=== PATIENT | female | born 1990 | race Caucasian/White ===

== ENCOUNTER → 2019-08-11 17:56 | Emergency (ER) | payer OTHER, SELFPAY | END | disposition left against medical advice (07) | PROVIDERS: Emergency Provider Nurse Practitioner | DX: Z53.21 Procedure and treatment not carried out due to patient leaving prior to being seen by health care provider (principal) | CPT/HCPCS: 99199 ==

== ENCOUNTER 2020-08-12 08:49 | Emergency (ER) | payer MEDICAID, SELFPAY ==
[2020-08-12 09:35] VITALS: BP 105/60; PULSE 76; RESP 18; TEMP 36.6; O2SAT 97
--- NOTE | 2020-08-12 09:55 | ED.URI ---
HPI - URI/Sore Throat General Chief Complaint: Upper Respiratory Infection Stated Complaint: sore throat Time Seen by Provider: 08/12/20 09:55 Source: patient Mode of arrival: ambulatory Limitations: no limitations History of Present Illness HPI Narrative: Janessa Eason is a 29 female with no prior history who comes to [facility] complaining of body aches and sore throat with swollen lymph nodes bilaterally. Started yesterday, pain is 6 out of 10. 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 EYES: Denies visual changes, redness, discharge. ENT: Denies rhinorrhea, congestion, has sore throat, otalgia. Has muscle aches and generally does not feel well CARDIOVASCULAR: Denies chest pain, palpitations, edema. RESPIRATORY: Denies dyspnea, wheezing, cough GASTROINTESTINAL: Denies abdominal pain, nausea, vomiting, diarrhea. GENITOURINARY: Denies dysuria, hematuria, abnormal discharge SKIN: Denies rash or itching. NEUROLOGIC: Denies numbness, or focal weakness. PSYCHIATRIC: Denies anxiety or depression. PENDING S[facility] TO [facility] Past Medical History Medical History No acute medical problems Family History Family History Other Depression Social History Social History (Updated 08/12/20 @ 10:04 by Cyndy Masters CNP) Smoking packs per day: 0.25 Smoking cigarettes per day: 5.0 Smoking status: Current some day smoker Tobacco type: cigarettes Alcohol intake: current Exam Narrative: Exam Narrative: GENERAL: This is a well-nourished, well-developed patient, in moderate distress. HEAD: normocephalic, atraumatic. EYES: Sclera clear/white. Vision is grossly intact. EARS: External ears normal, auditory canals clear and without drainage, TMs normal without perforation. Hearing grossly intact. NOSE: External nose normal without nasal discharge, nares without redness, no rhinorrhea. THROAT: Mucous membranes moist, posterior pharynx erythematous with 2+ tonsillar edema NECK: Neck supple, bilateral enlarged tender submandibular lymph nodes CARDIOVASCULAR: Regular rate and rhythm without murmurs, gallops, or rubs. RESPIRATORY: Clear to auscultation. Breath sounds equal bilaterally. No wheezes, rales, or rhonchi. GASTROINTESTINAL: Abdomen soft, non-tender, SKIN: warm, intact with no suspicious lesions or rash, good texture and turgor. NEURO: awake, alert, and oriented to person, place and time. There were no obvious focal neurologic abnormalities. Steady gait EXTREMITIES: Normal range of motion. BACK: Nontender without deformity Course Course Emergency Course: Patient who works in a long-term and is tested twice a week for Covid, comes to [facility] with sore throat and muscle aches, worsening last day Strep test positive Flu test negative Started on penicillin, prednisone- hration and infection control discussed Vital Signs Vital signs: Vital Signs Temperature 97.8 F 08/12/20 09:35 Pulse Rate 76 08/12/20 09:35 Respiratory Rate 18 08/12/20 09:35 Blood Pressure 105/60 08/12/20 09:35 Pulse Oximetry 97 08/12/20 09:35 Temperature 97.8 F 08/12/20 09:35 Pulse Rate 76 08/12/20 09:35 Respiratory Rate 18 08/12/20 09:35 Blood Pressure 105/60 08/12/20 09:35 Pulse Oximetry 97 08/12/20 09:35 MDM - URI/Sore Throat Differential Diagnosis Differential diagnosis: Likely upper respiratory infection, sinusitis, pharyngitis and other Lab Data Labs: Influenza A Screen Negative Reference Range: Negative Influenza B Screen Negat
== END 2020-08-12 10:14 | disposition home or self-care (01) ==
PROVIDERS: Emergency Provider Nurse Practitioner
DX: J02.0 Streptococcal pharyngitis (principal); F17.210 Nicotine dependence, cigarettes, uncomplicated
CPT/HCPCS: 87804; 87880; 99213; G0463

== ENCOUNTER 2020-09-24 14:46 | Emergency (ER) | payer MEDICAID, SELFPAY ==
[2020-09-24 15:00] VITALS: BP 119/61; PULSE 119; RESP 18; TEMP 36.7; O2SAT 98
--- NOTE | 2020-09-24 15:01 | ED.GENADULT ---
HPI - General Adult General Chief complaint: Upper Respiratory Infection Stated complaint: sore throat body ache weak Time Seen by Provider: 09/24/20 15:01 Source: patient Mode of arrival: ambulatory Limitations: no limitations History of Present Illness HPI narrative: 29-year-old female patient presents to the [facility] with complaints of cold symptoms for the past 3 days. Patient states she has had sore throat that got increasingly worse last night. Patient states that he has also had some nasal drainage and congestion. Denies any fevers that she is aware of. Patient states she was diagnosed with strep earlier in August and was treated with amoxicillin. Patient states she thought that the strep went away. Patient states she does get tested weekly for Covid, every Sunday. Patient states she did not get tested this week due to the fact that she was not feeling well but she does work in a long-term care facility. Patient states she has been taking [id number] DayQuil, NyQuil and sinus medications for her symptoms. Related Data Allergies Allergy/AdvReac Type Severity Reaction Status Date / Time No Known Allergies Allergy Verified 09/24/20 14:48 Review of Systems Review of Systems: Narrative: CONSTITUTIONAL: Denies fever, chills, or sweats. EYES: Denies visual changes, redness, or discharge. ENT: Positive rhinorrhea, congestion, positive sore throat, denies otalgia. CARDIOVASCULAR: Denies chest pain, palpitations, or edema. RESPIRATORY: Denies cough or dyspnea. GASTROINTESTINAL: Denies abdominal pain, nausea, vomiting, or diarrhea. GENITOURINARY: Denies dysuria or hematuria. SKIN: Denies rash or itching. MUSCULOSKELETAL: Denies back pain, joint pain, or myalgia. NEUROLOGIC: Denies headache, numbness, or weakness. PSYCHIATRIC: Denies anxiety or depression. [facility] Past Medical History Medical History No acute medical problems Family History Family History Other Depression Social History Social History Smoking packs per day: 0.25 Smoking cigarettes per day: 5.0 Smoking status: Current some day smoker Tobacco type: cigarettes Alcohol intake: current Comments At the time of my signature I agree with nursing past medical history, surgical, social, and family history. There is no relevant family history pertinent to the presenting complaint. Exam Narrative: Exam Narrative: GENERAL: Well-appearing, well-nourished, and in no acute distress. HEAD: Normocephalic, atraumatic. EYES: PERRLA and EOMI. ENT: Nares clear, no rhinorrhea or epistaxis. Mucous membranes moist. Posterior pharynx with some erythema and 2+ tonsil enlargement noted. No exudates or lesions present. Bilateral TMs are clear with no erythema or foreign bodies in the canal. NECK: Supple. No lymphadenopathy CHEST: Clear to auscultation. No respiratory distress. HEART: Regular rate and rhythm. No murmur heard. Normal peripheral pulses. ABDOMEN: Soft, nontender, nondistended, normal active bowel sounds. EXTREMITIES: Normal range of motion. No edema. SKIN: Warm, dry, no rash. NEURO: No focal deficits. Alert and oriented x3. Course Vital Signs Vital signs: Vital Signs Temperature 36.7 C 09/24/20 15:00 Pulse Rate 119 H 09/24/20 15:00 Respiratory Rate 18 09/24/20 15:00 Blood Pressure 119/61 09/24/20 15:00 Pulse Oximetry 98 09/24/20 15:00 Temperature 36.7 C 09/24/20 15:00 Pulse Rate 119 H 09/24/20 15:00 Respiratory Rate 18 09/24/20 15:00 Blood Pressure 119/61 09/24/20 15:00 Pulse Oximetry 98 09/24/20 15:00 Vital signs reviewed Medical Decision Making Differential Diagnosis Differential Diagnosis: Differential diagnosis: Allergic rhinitis, chronic sinusitis, tonsillitis, acute sinusitis, infectious mononucleosis, seasonal influenza, pertussis,
[2020-09-25 00:24] LABS: SARS-CoV-2 RNA PCR Negative
== END 2020-09-24 15:35 | disposition home or self-care (01) ==
PROVIDERS: Emergency Provider Nurse Practitioner Family
DX: J02.0 Streptococcal pharyngitis (principal); Z20.822 Contact with and (suspected) exposure to COVID-19; F17.210 Nicotine dependence, cigarettes, uncomplicated
CPT/HCPCS: 87804; 87880; 99213; C9803; G0463; U0003; U0005

== ENCOUNTER 2020-11-25 16:14 | Emergency (ER) | payer SELFPAY ==
[2020-11-25 16:23] VITALS: BP 126/81; PULSE 86; RESP 16; TEMP 36.1; O2SAT 98
[2020-11-25 16:29] VITALS: BP 126/81; PULSE 86; RESP 16; TEMP 36.1; O2SAT 98
--- NOTE | 2020-11-25 16:39 | ED.URI ---
HPI - URI/Sore Throat General Chief Complaint: Upper Respiratory Infection Stated Complaint: runny nose clammy and fatigue Time Seen by Provider: 11/25/20 16:39 Source: patient and RN notes reviewed Mode of arrival: ambulatory Limitations: no limitations History of Present Illness HPI Narrative: 30 year old [facility] complaints of 3 day history of episodes of vomiting and diarrhea and some intermittent abdominal discomfort. She states Sunday she got sick at work and vomited at work and had some abdominal pain, reports that she has had to call off work for the past 2 days. She states that she has no vomiting or diarrhea today but continues to have decrease in appetite and some abdominal cramping.She reports drinking some Gatorade today and having some chicken noodle soup and ramen noodles.She states that she and daughter had strep 2 months ago and daughter is also feeling ill with similar symptoms wants to make sure she does not have strep, denies sore throat, fevers, admits to some nasal drainage. Patient works at [employer] and is COVID tested weekly. MD elicited complaint: rhinorrhea and other (vomiting and diarrhea and intermittent abdominal discomfort) Onset (ago): day(s) (3) Description of mucous: clear Able to tolerate fluids by mouth: Yes Associated symptoms: rhinorrhea, abdominal pain, vomiting and diarrhea Treatments prior to arrival: acetaminophen and cold medicine (Dayquil and Nyquil) Related Data Allergies Allergy/AdvReac Type Severity Reaction Status Date / Time No Known Allergies Allergy Verified 11/25/20 16:28 Review of Systems Review of Systems: Narrative: CONSTITUTIONAL: Denies fever, chills, or sweats. EYES: Denies visual changes, redness, or discharge. ENT: positive rhinorrhea,no congestion, sore throat, or otalgia. CARDIOVASCULAR: Denies chest pain, palpitations, or edema. RESPIRATORY: Denies cough or dyspnea. GASTROINTESTINAL:intermittent mid abdominal pain, episodes of nausea, vomiting, or diarrhea. GENITOURINARY: Denies dysuria or hematuria. SKIN: Denies rash or itching. MUSCULOSKELETAL: Denies back pain, joint pain, or myalgia. NEUROLOGIC: Denies headache, numbness, or weakness. PSYCHIATRIC: positive history of anxiety or depression. All systems reviewed & are unremarkable except as noted in HPI and below [facility] Past Medical History Medical History (Updated 11/27/20 @ 15:29 by Flores Knowles NP) Anxiety and depression No acute medical problems Surgical History Surgical History (Updated 11/27/20 @ 15:29 by Flores Knowles NP) History of tubal ligation Family History Family History Other Depression Social History Social History (Updated 11/27/20 @ 15:30 by Flores Knowles NP) Smoking packs per day: 0.25 Smoking cigarettes per day: 5.0 Years smoked: 18 Smoking pack-years: 4.50 Smoking status: Current every day smoker Tobacco type: cigarettes Alcohol intake: current Substance use: never Living arrangements: with family Gender identity (if verbalized by the patient): Female Comments At time of signature, agree with nursing past medical, surgical, social and family history. There is no relevant family history pertinent to the presenting complaint Exam Narrative: Exam Narrative: GENERAL: Well-appearing, well-nourished, and in no acute distress. HEAD: Normocephalic, atraumatic. EYES: PERRLA and EOMI. ENT: Nares clear, clear rhinorrhea or epistaxis. Mucous membranes moist.TM's normal with good light reflex, throat pink with no lesions or exudates, no tonsil enlargement NECK: Supple.no lymphadenopathy CHEST: Clear to auscultation. No respiratory distress.SAO2 98% on room air HEART: Regular rate and rhythm. No murmur heard. Normal peripheral pulses. ABDOMEN: Soft, nontender to palpation, nondistended, normal active bowel sounds. EXTREMITIES: Normal range of motion. N
== END 2020-11-25 17:10 | disposition home or self-care (01) ==
PROVIDERS: Emergency Provider Registered Nurse
DX: K52.9 Noninfective gastroenteritis and colitis, unspecified (principal); F17.210 Nicotine dependence, cigarettes, uncomplicated
CPT/HCPCS: 87081; 87880; 99213; G0463

== ENCOUNTER 2021-09-25 15:26 | Emergency (ER) | payer SELFPAY ==
[2021-09-25 15:45] VITALS: BP 127/87; PULSE 93; RESP 18; TEMP 37.1; O2SAT 99
--- NOTE | 2021-09-25 16:12 | ED.GENADULT ---
HPI - General Adult General Chief complaint: Upper Respiratory Infection Stated complaint: nose throat diahhrea nausea Source: patient Mode of arrival: ambulatory Limitations: no limitations History of Present Illness HPI narrative: Patient presents for evaluation of multiple complaints. She states that 2 days ago she developed some fatigue. Yesterday she developed diarrhea and did not get up out of bed for the day. She experienced nausea without vomiting. Her appetite has been decreased. She denies any abdominal pain. She states she has had hot flashes and chills but does not have a thermometer to check her temperature. She also reports a sore throat. 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 She gets tested for Covid every Sunday and Sunday. She has been taking Tylenol, DayQuil, NyQuil, Benadryl with improvement in her symptoms thereafter. Her daughter recently had similar symptoms. She smokes 1/4 pack/day. She missed work both yesterday and today and is requesting a note to keep her off of work Related Data Allergies Allergy/AdvReac Type Severity Reaction Status Date / Time No Known Allergies Allergy Verified 09/25/21 15:55 Review of Systems Review of Systems: CONSTITUTIONAL: Reports hot flashes and chills. Reports fatigue. Reports decreased appetite. EYES: Denies visual changes, redness, or discharge. ENT: Reports sore throat. Denies rhinorrhea, congestion, or otalgia. CARDIOVASCULAR: Denies chest pain, palpitations, or edema. RESPIRATORY: Denies cough or dyspnea. GASTROINTESTINAL: Reports diarrhea, and nausea without vomiting GENITOURINARY: Denies dysuria or hematuria. SKIN: Denies rash or itching. MUSCULOSKELETAL: Denies back pain, joint pain, or myalgia. NEUROLOGIC: Denies headache, numbness, dizziness, or weakness. PSYCHIATRIC: Denies anxiety or depression. [facility] Past Medical History Medical History Anxiety and depression No acute medical problems Surgical History Surgical History History of tubal ligation Family History Family History Other Depression Social History Social History Smoking packs per day: 0.25 Smoking cigarettes per day: 5.0 Years smoked: 18 Smoking pack-years: 4.50 Smoking status: Current every day smoker Tobacco type: cigarettes Alcohol intake: current Substance use: never Gender identity (if verbalized by the patient): Female Exam Narrative: GENERAL: Well-appearing, well-nourished, and in no acute distress. HEAD: Normocephalic, atraumatic. EYES: PERRLA and EOMI. ENT: Nares clear, no rhinorrhea or epistaxis. Mucous membranes moist. Oropharynx without tonsillar hypertrophy exudate or other lesions. Mild posterior pharyngeal erythema. Bilateral TMs pearly carroll nonbulging NECK: Supple. No adenopathy or masses. No carotid bruits or JVD CHEST: Clear to auscultation. No respiratory distress. No wheezes rales or rhonchi HEART: Regular rate and rhythm. No murmur heard. Normal peripheral pulses. ABDOMEN: Soft, nontender, nondistended, normal active bowel sounds. EXTREMITIES: Normal range of motion. No edema. SKIN: Warm, dry, no rash. NEURO: No focal deficits. Alert and oriented x3. PSYCH: Normal mood and affect. Course Course Emergency Course: This is a 30-year-old female who presented with sick symptoms. Influenza, strep, Covid were all negative. Likely acute viral syndrome. Advised increased hydration and [id number] agents for symptom management. She should follow-up outpatient for further evaluation treatment return for worsening symptoms. Patient agreed with plan of care. Level of Care: Express Care Visit Vital Signs Vital signs: Vital Signs Temperature 37.1 C 09/25/21 15
== END 2021-09-25 16:20 | disposition home or self-care (01) ==
PROVIDERS: Emergency Provider Nurse Practitioner
DX: B34.9 Viral infection, unspecified (principal); Z20.822 Contact with and (suspected) exposure to COVID-19; F17.210 Nicotine dependence, cigarettes, uncomplicated
CPT/HCPCS: 87081; 87426; 87804; 87880; 99213; C9803; G0463

== ENCOUNTER 2022-06-21 11:58 | Emergency (ER) | payer SELFPAY ==
[2022-06-21 12:06] VITALS: BP 123/67; PULSE 100; RESP 16; TEMP 36.9; O2SAT 98
--- NOTE | 2022-06-21 13:49 | ED.FEMALEGU ---
HPI - Female Genitourinary General Chief complaint: Urogenital-Female Stated complaint: Vaginal Issue Time Seen by Provider: 06/21/22 13:49 Source: patient and RN notes reviewed Mode of arrival: ambulatory Limitations: no limitations History of Present Illness HPI Narrative: 31-year-old female presented for complaint of vaginal itching and discharge over the last few days. She endorses lower abdominal pain that radiates to the lower back. She also reports burning with urination, states it feels like she is being stabbed at the end of the urine stream. She states she has hematuria for about 2 days. She denies nausea vomiting, diarrhea, fever or chills. She endorses new sexual partner and also concern for STDs without known exposure. Related Data Allergies Allergy/AdvReac Type Severity Reaction Status Date / Time No Known Allergies Allergy Verified 06/21/22 13:27 Review of Systems Review of Systems: CONSTITUTIONAL: Denies body aches, fever, chills, or sweats. CARDIOVASCULAR: Denies chest pain, palpitations, or edema. RESPIRATORY: Denies cough or dyspnea. GASTROINTESTINAL: Denies abdominal pain, nausea, vomiting, or diarrhea. GENITOURINARY: per HPI SKIN: Denies rash, itching, or wounds. MUSCULOSKELETAL: Denies back pain or myalgia. [facility] Past Medical History Medical History Anxiety and depression No acute medical problems Surgical History Surgical History History of tubal ligation Family History Family History Other Depression Social History Social History Smoking packs per day: 0.25 Smoking cigarettes per day: 5.0 Years smoked: 18 Smoking pack-years: 4.50 Smoking status: Current every day smoker Tobacco type: cigarettes Alcohol intake: current Substance use: never Gender identity (if verbalized by the patient): Female Comments At time of signature, I have reviewed and agree with nursing past medical, surgical, social and family history unless otherwise noted. Please see nursing chart for further information. There is no relevant family history pertinent to the presenting complaint Exam Narrative: GENERAL: Well-appearing ENT: Mucous membranes pink and moist. NECK: Normal AROM. Supple. CHEST: No respiratory distress. Clear to auscultation. HEART: Regular rate and rhythm. ABDOMEN: Soft, nontender, nondistended, normal active bowel sounds. No CVA tenderness SKIN: Warm, dry, no rash. NEURO: No focal deficits. Alert and oriented x3. Gait steady. PSYCH: Normal affect. Course Course Emergency Course: Patient is aware of diagnosis, understands and agrees to treatment plan. Anticipatory guidance given. Patient agrees to follow-up as directed and is aware of reasons to seek care at the emergency department. Portions of this record may have been created with voice recognition software Level of Care: Express Care Visit Vital Signs Vital signs: Vital Signs Temperature 98.4 F 06/21/22 12:06 Pulse Rate 100 06/21/22 12:06 Respiratory Rate 16 06/21/22 12:06 Blood Pressure 123/67 06/21/22 12:06 Pulse Oximetry 98 06/21/22 12:06 Oxygen Delivery Room Air 06/21/22 12:06 Temperature 98.4 F 06/21/22 12:06 Pulse Rate 100 06/21/22 12:06 Respiratory Rate 16 06/21/22 12:06 Blood Pressure 123/67 06/21/22 12:06 Pulse Oximetry 98 06/21/22 12:06 Oxygen Delivery Room Air 06/21/22 12:06 Reviewed MDM - Female Genitourinary MDM Narrative Medical decision making narrative: Patient presenting with concern for UTI and STD. Urine specimen collected for GC, chlamydia, trich. Informed Pt will be contacted w/ results when they become available if they are positive. Discussed with patient that it takes up to 7 days for result
== END 2022-06-21 14:10 | disposition home or self-care (01) ==
PROVIDERS: Emergency Provider Nurse Practitioner Family
DX: N39.0 Urinary tract infection, site not specified (principal); Z20.2 Contact with and (suspected) exposure to infections with a predominantly sexual mode of transmission; F17.210 Nicotine dependence, cigarettes, uncomplicated
CPT/HCPCS: 81003; 87077; 87086; 87186; 87491; 87591; 87661; 99214; G0463

== ENCOUNTER 2022-10-22 18:17 | Emergency (ER) | payer SELFPAY ==
--- NOTE | ~2022-10-22 | XR_ITS ---
EXAMINATION: [id number] DATE: 10/22/2022 18:43 INDICATION: Lateral left rib pain post fall TECHNIQUE: A frontal inspiratory view of the chest and 3 views of the left ribs were obtained. COMPARISON: None FINDINGS: There is a nodular opacity projecting over the posterolateral left ninth rib on one AP images with no evident correlate on the third AP image or the oblique image suggesting this represents artifact res ulting from combination of rib, pulmonary vasculature, breast tissue and nipple shadows. No other air space opacities, pulmonary edema, pleural effusion or pneumothorax. Cardiomediastinal silhouette is n ormal. No rib fractures identified. IMPRESSION: 1. No rib fracture or acute cardiopulmonary disease. Reviewed, dictated and finalized at location A.
[2022-10-22 18:34] VITALS: BP 121/68; PULSE 86; RESP 18; TEMP 36.7; O2SAT 100
--- NOTE | 2022-10-22 18:58 | ED.GENADULT ---
HPI - General Adult General Chief complaint: Fall Stated complaint: Fall Injury/Rib Pain Source: patient Mode of arrival: ambulatory Limitations: no limitations History of Present Illness HPI narrative: Patient presents for evaluation of pain in left ribs. Symptom onset last night. She indicates she slipped on wet porch and landed on her left ribs. She did not hit her head. No loss of consciousness. No other injury. She reports 6/10 pain in the affected area, worse with deep inspiration. She denies any shortness of breath. She does smoke approximately 5 cigarettes per day. No additional complaints or concerns. Related Data Home Medications Medication Instructions Recorded Confirmed No Home Medications 10/22/22 10/22/22 Allergies Allergy/AdvReac Type Severity Reaction Status Date / Time No Known Allergies Allergy Verified 10/22/22 19:24 Review of Systems Review of Systems: CONSTITUTIONAL: Denies fever, chills, or sweats. EYES: Denies visual changes, redness, or discharge. ENT: Denies rhinorrhea, congestion, sore throat, or otalgia. CARDIOVASCULAR: Denies chest pain per se, palpitations, or edema. RESPIRATORY: Denies cough or dyspnea. GASTROINTESTINAL: Denies abdominal pain, nausea, vomiting, or diarrhea. GENITOURINARY: Denies dysuria or hematuria. SKIN: Denies rash or itching. MUSCULOSKELETAL: Reports pain in left ribs. Denies back pain, joint pain, or myalgia. NEUROLOGIC: Denies headache, numbness, dizziness, or weakness. PSYCHIATRIC: Denies anxiety or depression. [facility] Past Medical History Medical History Anxiety and depression No acute medical problems Surgical History Surgical History History of tubal ligation Family History Family History Other Depression Social History Social History Smoking packs per day: 0.25 Smoking cigarettes per day: 5.0 Years smoked: 18 Smoking pack-years: 4.50 Smoking status: Current every day smoker Tobacco type: cigarettes Alcohol intake: current Substance use: never Living arrangements: with family Gender identity (if verbalized by the patient): Female Spiritual care concerns: No Exam Narrative: GENERAL: Well-appearing, well-nourished, and in no acute distress. HEAD: Normocephalic, atraumatic. EYES: PERRLA and EOMI. ENT: Nares clear, no rhinorrhea or epistaxis. Mucous membranes moist. Oropharynx without tonsillar hypertrophy exudate or other lesions. Bilateral TMs pearly carroll nonbulging NECK: Supple. No adenopathy or masses. No carotid bruits or JVD CHEST: Clear to auscultation. No respiratory distress. No wheezes rales or rhonchi. Tenderness near he noted over left anterolateral ribs. HEART: Regular rate and rhythm. No murmur heard. Normal peripheral pulses. ABDOMEN: Soft, nontender, nondistended, normal active bowel sounds. EXTREMITIES: Normal range of motion. No edema. SKIN: Warm, dry, no rash. NEURO: No focal deficits. Alert and oriented x3. PSYCH: Normal mood and affect. Course Course Emergency Course: THIS IS A 31-YEAR-OLD FEMALE WHO PRESENTED FOR EVALUATION OF PAIN IN LEFT ANTRAL RIBS AFTER A FALL YESTERDAY. X-RAY NEGATIVE FOR FRACTURE. EXAM CONSISTENT WITH CONTUSION. PROVIDED WITH INCENTIVE SPIROMETER. NSAIDS FOR PAIN AT HOME. FOLLOW UP WITH PRIMARY PROVIDER. GO TO THE ER FOR SHORTNESS OF BREATH FOR WORSENING SYMPTOMS. ADVISED ON SMOKING CESSATION. PATIENT IN AGREEMENT PLAN CARE. Level of Care: Express Care Visit Vital Signs Vital signs: Vital Signs Temperature 36.7 C 10/22/22 18:34 Pulse Rate 86 10/22/22 18:34 Respiratory Rate 18 10/22/22 18:34 Blood Pressure 121/68 10/22/22 18:34 Pulse Oximetry 100 10/22/22 18:34 Oxygen Delivery Room Air 10/22/22 1
== END 2022-10-22 19:31 | disposition home or self-care (01) ==
PROVIDERS: Emergency Provider Nurse Practitioner
DX: S20.212A Contusion of left front wall of thorax, initial encounter (principal); W01.0XXA Fall on same level from slipping, tripping and stumbling without subsequent striking against object, initial encounter; F17.210 Nicotine dependence, cigarettes, uncomplicated
CPT/HCPCS: 71101; 99213; G0463

== ENCOUNTER 2022-11-08 17:55 | Emergency (ER) | payer SELFPAY ==
[2022-11-08 18:03] VITALS: BP 135/80; PULSE 95; RESP 16; TEMP 37.1; O2SAT 100
--- NOTE | 2022-11-08 18:08 | ED.GENADULT ---
HPI - General Adult General Chief complaint: Upper Respiratory Infection Stated complaint: cold/flu Source: patient and RN notes reviewed History of Present Illness HPI narrative: 31-year-old female presents to urgent care with complaints of a sore throat, congestion, cough, chest congestion, and nausea. Patient is also reporting lethargy and body aches. Patient states all of her symptoms started this morning. Patient states her child at home has strep throat. Denies any vomiting, abdominal pain, shortness of breath, or chest pain. Patient has been taking Xiao-Julian at home. Related Data Allergies Allergy/AdvReac Type Severity Reaction Status Date / Time No Known Allergies Allergy Verified 11/08/22 18:13 Review of Systems Review of Systems: Pertinent positives and pertinent negatives per HPI. [facility] Past Medical History Medical History Anxiety and depression No acute medical problems Surgical History Surgical History History of tubal ligation Family History Family History Other Depression Social History Social History Smoking packs per day: 0.25 Smoking cigarettes per day: 5.0 Years smoked: 18 Smoking pack-years: 4.50 Smoking status: Current every day smoker Tobacco type: cigarettes Alcohol intake: current Substance use: never Living arrangements: with family Gender identity (if verbalized by the patient): Female Spiritual care concerns: No Comments At the time of my signature, I reviewed and agree with the nursing past medical, surgical, social, and family history. There is no relevant family history pertinent to the patient complaint. Exam Narrative: GENERAL: This is a well-nourished, well-developed patient, in no apparent distress. HEAD: normocephalic, atraumatic. EYES: Sclera clear/white. Vision is grossly intact. EARS: External ears normal, auditory canals clear and without drainage, TMs normal without perforation. Hearing grossly intact. NOSE: External nose normal with no obvious nasal discharge, nares without redness, no rhinorrhea. THROAT: Mucous membranes moist, posterior pharynx clear. NECK: Neck supple, non-tender without lymphadenopathy, masses or thyromegaly. CARDIOVASCULAR: Regular rate and rhythm without murmurs, gallops, or rubs. RESPIRATORY: Clear to auscultation. Breath sounds equal bilaterally. No wheezes, rales, or rhonchi. GASTROINTESTINAL: Abdomen soft, non-tender, nondistended. Bowel sounds are active. No hepato-splenomegaly, or palpable masses. No guarding. SKIN: warm, intact with no suspicious lesions or rash, good texture and turgor. NEURO: awake, alert, and oriented to person, place and time. There were no obvious focal neurologic abnormalities. EXTREMITIES: No clubbing, cyanosis, or edema. No joint tenderness, effusion, or edema noted. Course Course Level of Care: Express Care Visit Vital Signs Vital signs: Vital Signs Temperature 98.7 F 11/08/22 18:03 Pulse Rate 95 11/08/22 18:03 Respiratory Rate 16 11/08/22 18:03 Blood Pressure 135/80 11/08/22 18:03 Pulse Oximetry 100 11/08/22 18:03 Oxygen Delivery Room Air 11/08/22 18:03 Temperature 98.7 F 11/08/22 18:03 Pulse Rate 95 11/08/22 18:03 Respiratory Rate 16 11/08/22 18:03 Blood Pressure 135/80 11/08/22 18:03 Pulse Oximetry 100 11/08/22 18:03 Oxygen Delivery Room Air 11/08/22 18:03 Reviewed. Medical Decision Making MDM Narrative Medical decision making narrative: Viral illness may last between 7-21 days; antibiotics do not cure viral illness and are NOT recommended at this time. Also, recommend symptomatic treatment includes: rest, fluids, and increase humidity of the air at home. Recommend Acetaminophen a
== END 2022-11-08 18:25 | disposition home or self-care (01) ==
PROVIDERS: Emergency Provider Nurse Practitioner Family
DX: B34.9 Viral infection, unspecified (principal); F17.210 Nicotine dependence, cigarettes, uncomplicated
CPT/HCPCS: 87081; 87880; 99213; G0463

== ENCOUNTER 2022-11-28 13:05 | Emergency (ER) | payer SELFPAY ==
[2022-11-28 13:11] VITALS: BP 123/96; PULSE 69; RESP 16; TEMP 36.3; O2SAT 99
--- NOTE | 2022-11-28 13:42 | ED.SKABFB ---
HPI - Skin/Abscess/Foreign Bdy General Chief complaint: Skin/Abscess/Foreign Body Stated complaint: Staff infection on left knee Source: patient and RN notes reviewed Limitations: no limitations History of Present Illness HPI narrative: Patient is a 32-year-old female who presents to the [facility] with abscess to her left knee. Patient states that she went to [facility] ED and was told by that she had staph to her knee, and she was prescribed Bactrim. Patient states that she has been taking the medication as prescribed but has not noticed much improvement. Patient states that she did notice that the redness has decreased since yesterday. She denies drainage from the area. Denies recent fevers or chills. Patient has full range of motion of the left knee. Sensation is intact. Related Data Home Medications Medication Instructions Recorded Confirmed gentamicin 0.1 % topical cream 1 applic topical TID 11/28/22 11/28/22 sulfamethoxazole 800 1 tablet PO BID 11/28/22 11/28/22 mg-trimethoprim 160 mg tablet Allergies Allergy/AdvReac Type Severity Reaction Status Date / Time No Known Allergies Allergy Verified 11/28/22 13:18 Review of Systems Review of Systems: CONSTITUTIONAL: Denies fever, chills, or sweats. EYES: Denies visual changes, redness, or discharge. ENT: Denies otalgia and sore throat CARDIOVASCULAR: Denies chest pain, palpitations, or edema. RESPIRATORY: Denies cough or dyspnea. GASTROINTESTINAL: Denies abdominal pain, nausea, vomiting, or diarrhea. GENITOURINARY: Denies dysuria or hematuria. SKIN: Denies rash or itching. Abscess noted to left knee. MUSCULOSKELETAL: Denies back pain or myalgia. Reports left knee pain due to abscess. NEUROLOGIC: Denies headache, numbness, or weakness. Pertinent positives per HPI. [facility] Past Medical History Medical History Anxiety and depression No acute medical problems Surgical History Surgical History History of tubal ligation Family History Family History Other Depression Social History Social History Smoking packs per day: 0.25 Smoking cigarettes per day: 5.0 Years smoked: 18 Smoking pack-years: 4.50 Smoking status: Current every day smoker Tobacco type: cigarettes Alcohol intake: current Substance use: never Living arrangements: with family Gender identity (if verbalized by the patient): Female Spiritual care concerns: No Comments At the time of my signature, I reviewed and agree with the nursing past medical, surgical, social, and family history. There is no relevant family history pertinent to the patient complaint. Exam Narrative: GENERAL: This is a well-nourished, well-developed patient, in no apparent distress. HEAD: normocephalic, atraumatic. EYES: PERRL. Sclera clear/white. Vision is grossly intact. EARS: External ears normal, auditory canals clear and without drainage, TMs normal without perforation. Hearing grossly intact. NOSE: External nose normal with no obvious nasal discharge, nares without redness, no rhinorrhea. THROAT: Mucous membranes moist, posterior pharynx clear. NECK: Neck supple, non-tender without lymphadenopathy, masses or thyromegaly. CARDIOVASCULAR: Regular rate and rhythm without murmurs, gallops, or rubs. RESPIRATORY: Clear to auscultation. Breath sounds equal bilaterally. No wheezes, rales, or rhonchi. GASTROINTESTINAL: Abdomen soft, non-tender, nondistended. Bowel sounds are active. No hepato-splenomegaly, or palpable masses. No guarding. SKIN: warm, intact with no suspicious rash, good texture and turgor. 4 x 4 cm abscess noted to the left knee with scabbed center (no active drainage) with surrounding erythema. + tenderness. NEURO: awake, alert, and oriented to person, place an
== END 2022-11-28 13:34 | disposition home or self-care (01) ==
PROVIDERS: Emergency Provider Nurse Practitioner
DX: L02.416 Cutaneous abscess of left lower limb (principal); F17.210 Nicotine dependence, cigarettes, uncomplicated
CPT/HCPCS: 99213; G0463